=== PATIENT | female | born 1960 | race Caucasian/White ===

== ENCOUNTER → 2017-08-02 | Day surgery (SDC) | payer OTHER ==
[2017-07-27 07:33] VITALS: BMI 49.0
--- NOTE | 2017-07-27 14:05 | PAT Medication Instructions ---
Service Date Jul 27, 2017. Current Home Medication List Acetaminophen (Tylenol), 1,000 MG PO Q12 PRN for Pain Docusate Sodium (Docusate Sodium), 10 ML PO Q12H Ezetimibe (Zetia), 10 MG PO DAILY Folic Acid (Folvite), 1 MG PO DAILY Furosemide (Lasix), 20 MG PO DAILY Guaifenesin/Codeine (Robitussin-Ac Syrup), 5 ML PO Q6H PRN for Cough Insulin Glargine (Lantus), 12 UNITS SC HS Ipratropium-Albuterol (Duoneb), 1 TREATMENT INH Q4H PRN for SOB/Wheezing Lisinopril (Zestril), 10 MG PO DAILY Loratadine (Claritin), 10 MG PO DAILY Magnesium Hydroxide (Milk of Magnesia), 30 ML PO Q72H PRN for Constipation Metoprolol Succ (Toprol Xl) (Toprol-Xl), 12.5 MG PO DAILY Montelukast Sodium (Singulair), 10 MG PO HS Ondansetron Hcl (Zofran), 4 MG PO Q6H PRN for Nausea Quetiapine Fumarate (Seroquel), 12.5 MG PO DAILY Sodium Phosphate/Biphosphate (Fleet Enema), 1 EA NH DAILY PRN for Constipation Medication Instructions For Your Scheduled Surgery - Continue as directed: Ezetimibe (Zetia), 10 MG PO DAILY Metoprolol Succ (Toprol Xl) (Toprol-Xl), 12.5 MG PO DAILY Quetiapine Fumarate (Seroquel), 12.5 MG PO DAILY - Hold the following medications 24 hours prior to surgery: Lisinopril (Zestril), 10 MG PO DAILY - Hold the following medications the morning of surgery: Docusate Sodium (Docusate Sodium), 10 ML PO Q12H Folic Acid (Folvite), 1 MG PO DAILY Furosemide (Lasix), 20 MG PO DAILY Guaifenesin/Codeine (Robitussin-Ac Syrup), 5 ML PO Q6H PRN for Cough Loratadine (Claritin), 10 MG PO DAILY Magnesium Hydroxide (Milk of Magnesia), 30 ML PO Q72H PRN for Constipation Sodium Phosphate/Biphosphate (Fleet Enema), 1 EA NH DAILY PRN for Constipation - Take the following medications the morning of surgery with a sip of water: Acetaminophen (Tylenol), 1,000 MG PO Q12 PRN for Pain (okay to take up to 4 hours prior to surgery if needed) Ipratropium-Albuterol (Duoneb), 1 TREATMENT INH Q4H PRN for SOB/Wheezing (if needed) Ondansetron Hcl (Zofran), 4 MG PO Q6H PRN for Nausea (if needed) - Take the following medications as scheduled the night before surgery: Acetaminophen (Tylenol), 1,000 MG PO Q12 PRN for Pain(if needed) Guaifenesin/Codeine (Robitussin-Ac Syrup), 5 ML PO Q6H PRN for Cough(if needed) Insulin Glargine (Lantus), 12 UNITS SC HS Ipratropium-Albuterol (Duoneb), 1 TREATMENT INH Q4H PRN for SOB/Wheezing(if needed) Magnesium Hydroxide (Milk of Magnesia), 30 ML PO Q72H PRN for Constipation(if needed) Montelukast Sodium (Singulair), 10 MG PO HS Ondansetron Hcl (Zofran), 4 MG PO Q6H PRN for Nausea(if needed) Sodium Phosphate/Biphosphate (Fleet Enema), 1 EA NH DAILY PRN for Constipation( if needed) If you have any questions please call us at [phone] or [phone] or [phone]
[~2017-08-02] VITALS: Ht 149.9 cm; Wt 110.0 kg
[~2017-08-02] MED LIST: ACET-1256 PO; ATROPINE SULFATE 0.1 MG/ML 5ML SYR IV PRN; BUPIVACAINE/EPINEPHRINE 0.5% MPF 1:200,000 30 ML VIAL ONE; CLR10 PO; DOCU5LIQ PO; EZET10TA47 PO; EpHEDrine SULFATE INJ 50 MG/ML AMP IV PRN; FENTANYL CITRATE INJ 50 MCG/1 ML 2 ML VIAL IV PRN; FENTANYL CITRATE INJ 50 MCG/1 ML 2 ML VIAL ONE; FOLI1TAB7 PO; FURO-85 PO; GUAISYP4 PO; IBUPROFEN 600 MG TAB PO PRN; INSDGI SC; IPRASOL4 INH; LIDOCAINE HCL 1% 20 ML VIAL ONE; LISI-461 PO; METO25TA3 PO; MIDAZOLAM HCL 1 MG/ML 2ML VIAL ONE; MOMLX PO; MONT1TAB3 PO; ONDA4TAB46 PO; ONDANSETRON INJ 2 MG/ML 2 ML VIAL IV PRN; QUET1TAB30 PO; SODIENE PR; SODIUM CHLORIDE 0.9% 1000ML 1,000 ML IV ONE
[2017-08-02 08:17] VITALS: Ht 149.9 cm; Wt 110.0 kg
--- NOTE | 2017-08-02 08:52 | History & Physical Bridge Note ---
H&P Re-Evaluation Bridge Note: I have examined the patient, reviewed the History & Physical and in the interval since the performance of the History & Physical I have noted the following changes of clinical significance: No changes noted
--- NOTE | 2017-08-02 10:01 | [facility] Post Operative Brief Note ---
Immediate Operative Summary Operative Date Aug 02, 2017. Pre-Operative Diagnosis Malfunctioning infusaport Post-Operative Diagnosis Malfunctioning infusaport Procedure(s) Performed Infusaport removal left chest Surgeon Dr. Theo Leblanc Computer Numerical Control Machinist Surgeon(s) None Estimated Blood Loss 5 mL Findings See dictation Specimens Permanent specimens A: Explanted infusaport Drains None Anesthesia Local with sedation Complication(s) None Disposition Recovery Room / PACU
--- NOTE | 2017-08-02 10:06 | Discharge Instructions ---
Discharge Instructions Date of Service Aug 02, 2017. Admission Reason for Admission: Other Complicatins D/T Venous Access Device Discharge Discharge Diagnosis / Problem: Same Discharge Goals Goal(s): Decrease discomfort Activity Recommendations Activity Limitations: resume your previous activity . Instructions / Follow-Up Instructions / Follow-Up Remove dressing in 3 days May shower beginning tomorrow Follow up in office for wound check in 2 weeks Current Hospital Diet Patient's current hospital diet: Discharge Diet Recommended Diet: Diabetes Type 2 Diet Procedures Procedures Performed: Infusaport removal left chest Pending Studies Studies pending at discharge: no Medical Emergencies . Who to Call and When: Medical Emergencies: If at any time you feel your situation is an emergency, please call [phone] immediately. . Non-Emergent Contact Non-Emergency issues call your: Primary Care Provider, Surgeon Call Non-Emergent contact if: your pain is worsening, wound has increased drainage, wound has increased redness . "Provider Documentation" section prepared by Theo Leblanc. . VTE Core Measure Inpt VTE Proph given/why not?: Treatment not indicated
--- NOTE | 2017-08-02 10:28 | Anesthesiology Progress Note ---
Anesthesia Post Op Note Date & Time Aug 02, 2017 at 10:28 Vital Signs Pain Intensity: 0 Vital Signs Past 12 Hours Date Time Temp Pulse Resp B/P (MAP) Pulse Ox O2 Delivery O2 Flow Rate FiO2 08/02/17 10:00 36.3 73 18 121/86 98 Oxymask 10 Notes Mental Status: alert / awake / arousable, participated in evaluation Pt Amnestic to Procedure: Yes Nausea / Vomiting: adequately controlled Pain: adequately controlled Airway Patency, RR, SpO2: stable & adequate BP & HR: stable & adequate Hydration State: stable & adequate Anesthetic Complications: no major complications apparent
--- NOTE | 2017-08-02 10:37 | OPERATIVE REPORT ---
DATE OF OPERATION: 08/02/2017 PREOPERATIVE DIAGNOSIS: Disfunctional A-port. POSTOPERATIVE DIAGNOSIS: Same. PROCEDURE: Removal of A-port. SURGEON: Dr. Leblanc. FINDINGS: The port was easily from surrounding tissue; however, when I went to remove the catheter, it was not able to be pulled through the incision. I did make a counter incision and dissect down towards the clavicle and eventually the catheter was able to be very carefully removed. There was no evidence of infection of the catheter. TECHNIQUE: The patient was given intravenous sedation and the area was prepped and draped in the usual sterile fashion. The area of the skin incision from placement of the port was anesthetized with 1% Xylocaine with epinephrine. The subcutaneous tissue was slowly only anesthetized. Incision was made, carried down through the subcutaneous tissue to the catheter. I was able to sewn the catheter with a 2-0 Vicryl, opened the sheath and identify the catheter itself. I then tried to remove the catheter with traction; however, it would not slide out. It felt to be adherent to an area just near the clavicle and so I anesthetized that area as well, made an incision, carried that down through the subcutaneous tissue to the catheter. I then identified the catheter within the sheaths and dissected down towards the clavicle. I then was able to open the sheath and grasped the catheter which initially would not slide out. Further dissection and dividing some of the tissue around the clavicle itself then allowed the catheter to slide out very slowly and carefully. I was able to identify the fact that I was at 0 and confirmed that the entire catheter had been removed. A 2-0 Vicryl was then used to occlude the sheath where there was some minimal backbleeding. I then was able to pull it out through the lower incision and separate the port from the surrounding tissues, removing it in total. Both of the incisions were closed in a similar fashion. The deep tissues were closed with running 2-0 Vicryl, the superficial subcutaneous tissue was closed with running 3-0 Vicryl and the skin was closed with 4-0 Monocryl in a running subcuticular fashion. Skin was cleansed, dried, and dressing placed. The estimated blood loss was 5 mL. Sponge, needle and instrument counts were correct prior to closure. The patient tolerated the surgical procedure without complication and was transferred to recovery. I attest to the content of the Intraoperative Record and any orders documented therein. Any exception s are noted below.
[2017-08-02 10:45] VITALS: BP 131/70; PULSE 75; TEMP 36.7; O2SAT 93
[2017-08-02 11:15] VITALS: BP 133/72; PULSE 75; TEMP 36.8; O2SAT 94
== END | disposition home or self-care (01) ==
LOC: C.ACU 07:08
PROVIDERS: ATTEND Surgery
DX: Z45.1 Encounter for adjustment and management of infusion pump (principal); E11.9 Type 2 diabetes mellitus without complications; Q90.9 Down syndrome, unspecified; E66.01 Morbid (severe) obesity due to excess calories; Z68.43 Body mass index [BMI] 50.0-59.9, adult; J45.909 Unspecified asthma, uncomplicated